=== PATIENT | male | born 1970 | race Caucasian/White ===

== ENCOUNTER 2017-03-04 06:00 | Observation (INO) | payer OTHER ==
[2017-02-24 13:50] VITALS: BMI 55.0
--- NOTE | 2017-02-24 14:23 | PAT Medication Instructions ---
Service Date Feb 24, 2017. Current Home Medication List Albuterol 0.5% Soln (Ventolin 0.5% Soln), 1 VIAL NEB BID Amoxicillin & Pot Clavulanate (Augmentin 875-125 mg), 1 TAB PO BID Atorvastatin (Lipitor), 10 MG PO QAM Dicyclomine Hcl (Dicyclomine Hcl), 1 TAB PO BID Diltiazem Hcl Ext Rel (Tiazac), 360 MG PO QAM Docusate Sodium (Docusate Sodium), 1 CAP PO BID Doxycycline Monohydrate (Monodox), 100 MG PO BID Duloxetine Hcl (Cymbalta), 60 MG PO QAM Fiber Laxative (Fiber Laxative), 1 TAB PO BID Furosemide (Lasix), 40 MG PO BID Gabapentin (Neurontin), 300 MG PO HS Gabapentin (Neurontin), 100 MG PO QAM Insulin Aspart (Novolog), 25-50 UNITS SC BID Insulin Glargine (Lantus), 65 UNITS SC BID Ipratropium-Albuterol (Combivent Respimat), 1 PUFFS INH QID PRN for SOB/Wheezing Loratadine (Allergy), 10 MG PO QAM Losartan Potassium (Losartan Potassium), 5 MG PO QAM Metformin Ext Rel (Glucophage Ext Rel), 2 TABS PO BID Metoprolol Tartrate (Lopressor) (Lopressor), 50 MG PO BID Montelukast Sodium (Singulair), 1 TAB PO HS Omeprazole (Prilosec), 20 MG PO QAM Polyethylene Glycol 3350 (Miralax), 17 GM PO DAILY PRN for CONSTIPATION Potassium Chloride (Micro-K Ext Rel), 20 MEQ PO QAM Rivaroxaban (Xarelto), 1 TAB PO HS Sildenafil Citrate (Viagra), 100 MG PO PRN Medication Instructions For Your Scheduled Surgery - Hold the following medications 48 hours prior to surgery: Metformin Ext Rel (Glucophage Ext Rel), 2 TABS PO BID - Hold the following medications the morning of surgery: Dicyclomine Hcl (Dicyclomine Hcl), 1 TAB PO BID Docusate Sodium (Docusate Sodium), 1 CAP PO BID Fiber Laxative (Fiber Laxative), 1 TAB PO BID Potassium Chloride (Micro-K Ext Rel), 20 MEQ PO QAM Furosemide (Lasix), 40 MG PO BID Polyethylene Glycol 3350 (Miralax), 17 GM PO DAILY PRN for CONSTIPATION Insulin Aspart (Novolog), 25-50 UNITS SC BID Loratadine (Allergy), 10 MG PO QAM Losartan Potassium (Losartan Potassium), 5 MG PO QAM Rivaroxaban (Xarelto), 1 TAB PO qAM (per surgeon, to Hold AM of surgery only) - Take the following medications the morning of surgery with a sip of water OTHERWISE NOTHING TO EAT OR DRINK AFTER MIDNIGHT: Albuterol 0.5% Soln (Ventolin 0.5% Soln), 1 VIAL NEB BID Ipratropium-Albuterol (Combivent Respimat), 1 PUFFS INH QID PRN for SOB/Wheezing Atorvastatin (Lipitor), 10 MG PO QAM Amoxicillin & Pot Clavulanate (Augmentin 875-125 mg), 1 TAB PO BID Diltiazem Hcl Ext Rel (Tiazac), 360 MG PO QAM Duloxetine Hcl (Cymbalta), 60 MG PO QAM Gabapentin (Neurontin), 100 MG PO QAM Doxycycline Monohydrate (Monodox), 100 MG PO BID Omeprazole (Prilosec), 20 MG PO QAM Metoprolol Tartrate (Lopressor) (Lopressor), 50 MG PO BID - For Insulin Dependent Diabetic patients: Test blood sugar A.M. of surgery. - If Blood Sugar is GREATER THAN 150, take HALF of your regular dose of: Insulin Glargine (Lantus) - If Blood Sugar is LESS THAN 150, do not take any: Insulin Glargine ( Lantus) - Take the following medications as scheduled the night before surgery: Albuterol 0.5% Soln (Ventolin 0.5% Soln), 1 VIAL NEB BID Ipratropium-Albuterol (Combivent Respimat), 1 PUFFS INH QID PRN for SOB/Wheezing Amoxicillin & Pot Clavulanate (Augmentin 875-125 mg), 1 TAB PO BID Dicyclomine Hcl (Dicyclomine Hcl), 1 TAB PO BID Docusate Sodium (Docusate Sodium), 1 CAP PO BID Fiber Laxative (Fiber Laxative), 1 TAB PO BID Furosemide (Lasix), 40 MG PO BID Doxycycline Monohydrate (Monodox), 100 MG PO BID Montelukast Sodium (Singulair), 1 TAB PO HS Gabapentin (Neurontin), 300 MG PO HS Metoprolol Tartrate (Lopressor) (Lopressor), 50 MG PO BID Polyethylene Glycol 3350 (Miralax), 17 GM PO DAILY PRN for CONSTIPATION Insulin Aspart (Novolog), 25-50 UNITS SC BID Insulin Glargine (Lantus), 65 UNITS SC BID If you have any questions please call us at [phone] or [phone] or [phone]
[~2017-03-04] VITALS: Ht 167.6 cm; Wt 152.0 kg
[~2017-03-04 06:00] MED LIST: ALBU0.5N2 NEB; AMOX875T PO; ATOR10TA82 PO; CZR50 PO; DICY20TA10 PO; DILT-119 PO; DOCU100C31 PO; DOXY100C76 PO; DULO60CA44 PO; FIBER PO; FRS/40 PO; GABA-112 PO; INSDGI SC; IPRA1AER2 INH; LORA10TA44 PO; METFTAB PO; METO50TA16 PO; MONT1TAB3 PO; NVLGI SC; POLY335019 PO; POTA10CA28 PO; PRLSR20 PO; RIVA1TAB4 PO; SILD100T PO
[2017-03-04] MEDS ORDERED: ALBUT/IPRATROP 3MG/0.5MG NEB 3 ML VIAL INH STA (07:06)
[2017-03-04 07:11] VITALS: BP 120/72; PULSE 64; TEMP 36.5; O2SAT 94; Ht 167.6 cm; Wt 152.0 kg
[2017-03-04 07:25] VITALS: PULSE 74; O2SAT 96
[2017-03-04] MEDS: LACTATED RINGER'S 1000ML 1,000 ML IV SCH ×2 (07:30→14:19)
[2017-03-04] MEDS ORDERED: PROPOFOL IV EMULSION 10 MG/ML 100 ML VIAL IV ONE (07:46)
[2017-03-04] MEDS ORDERED: MIDAZOLAM HCL 1 MG/ML 2ML VIAL ONE (07:58)
[2017-03-04] MEDS ORDERED: FENTANYL CITRATE INJ 50 MCG/1 ML 2 ML VIAL ONE (07:58)
--- NOTE | 2017-03-04 08:12 | History & Physical Bridge Note ---
H&P Re-Evaluation Bridge Note: I have examined the patient, reviewed the History & Physical and in the interval since the performance of the History & Physical I have noted the following changes of clinical significance: No changes noted
[2017-03-04] MEDS ORDERED: HEPARIN SOD (PORCINE) 1000 UNIT/ML 10 ML VIAL ONE (09:33)
[2017-03-04] MEDS ORDERED: LARYING-O-JET KIT (LTA) EXT ONE ×2 (09:42)
[2017-03-04] MEDS ORDERED: ONDANSETRON INJ 2 MG/ML 2 ML VIAL ONE (09:42)
[2017-03-04] MEDS ORDERED: LIDOCAINE HCL 2% 2 ML VIAL (20MG/ML) ONE (09:42)
[2017-03-04] MEDS ORDERED: SUCCINYLCHOLINE CHLORIDE 20 MG/ML 10 ML VIAL IV ONE (09:42)
[2017-03-04] MEDS ORDERED: PHENYLEPHRINE 100MCG/ML 5ML SYR ONE (09:42)
[2017-03-04] MEDS ORDERED: GLYCOPYRROLATE INJ 0.2 MG/ML VIAL ONE (09:42)
[2017-03-04] MEDS ORDERED: EpHEDrine SULFATE 50MG/5ML SYR ONE (09:42)
[2017-03-04] MEDS ORDERED: PROPOFOL IV EMULSION 10 MG/ML 20 ML VIAL IV ONE (09:42)
[2017-03-04] MEDS ORDERED: DEXAMETHASONE SOD INJ 4 MG/ML VIAL ONE (09:42)
[2017-03-04] MEDS ORDERED: NEOSTIGMINE METHYLSULFATE 5 MG/5 ML SYR ONE (09:42)
[2017-03-04] MEDS ORDERED: ACETAMINOPHEN 325 MG TAB PO PRN (11:45)
[2017-03-04] MEDS ORDERED: IPRATROPIUM BROMIDE/ALBUTEROL respimat INH INH PRN (11:45)
--- NOTE | 2017-03-04 12:01 | [facility] Post Operative Brief Note ---
Immediate Operative Summary Operative Date Mar 04, 2017. Pre-Operative Diagnosis TYPICAL PERSISTENT ATRIAL FLUTTER Post-Operative Diagnosis SAME, SINUS RHYTHM Procedure(s) Performed 3D MAPPING OF TYPICAL RIGHT ATRIAL FLUTTER, S/P CTI ABLATION, EPS Surgeon FERNANDEZ DACOSTA Ramp Agent Surgeon(s) NONE Estimated Blood Loss <10CC Findings NONE Fluids (cc crystalloids) 1550 Specimens NONE Drains NONE Anesthesia GENERAL ANESTHESIA Complication(s) None Disposition FRAME [facility]IP[facility] HOLDING
[2017-03-04] MEDS ORDERED: PHARMACY GLYCEMIC MGMT CONSULT PRN (12:09)
--- NOTE | 2017-03-04 12:31 | Discharge Instructions ---
Discharge Instructions Date of Service Mar 04, 2017. Admission Reason for Admission: A-Fib W/Ablation & Anesthesia Discharge Discharge Diagnosis / Problem: typical atrial flutter Discharge Goals Goal(s): Improve function Activity Recommendations Activity Limitations: as noted below (no lifting more than 10 pounds for 1 week ) May Resume Sexual Activity: after one week Shower/Bathe: tomorrow Driving or Machine Use: resume 1 day after discharge . Current Hospital Diet Patient's current hospital diet: AHA Diet (Heart Healthy), Low Sodium Diet (2gm Na) Discharge Diet Recommended Diet: AHA Diet (Heart Healthy), Low Sodium Diet (2gm Na) Procedures Procedures Performed: 3D MAPPING OF TYPICAL RIGHT ATRIAL FLUTTER, S/P CTI ABLATION, EPS Pending Studies Studies pending at discharge: no Medical Emergencies . Who to Call and When: Medical Emergencies: If at any time you feel your situation is an emergency, please call 911 immediately. . Non-Emergent Contact Non-Emergency issues call your: [facility] . . "Provider Documentation" section prepared by Kelsi Ramos. VTE Core Measure Inpt VTE Proph given/why not?: Other Anticoagulation (xaralto)
--- NOTE | 2017-03-04 12:35 | Discharge Summary ---
Discharge Summary Date of Service Mar 04, 2017. Discharge Summary Admission Date: 03/04/2017 Discharge Date: Mar 05, 2017 Discharge Disposition: Home Principal Diagnosis: persistent typical atrial flutter Secondary Diagnoses/Problems: HTN HLD COPD VERA on CPAP prior tobacco abuse morbid obesity Procedures: 3d mapping of typical counter clockwise right atrial flutter, ablation of cavotricuspid isthmus, EPS Medication Reconciliation Continued Medications: Albuterol 0.5% Soln (Ventolin 0.5% Soln) Nebu 1 VIAL NEB BID Amoxicillin & Pot Clavulanate (Augmentin 875-125 mg) 1 Tab Tab 1 TAB PO BID, #14 TAB ALTERNATES WVERY MNTH WITH DOXYCYCLINE Atorvastatin (Lipitor) 10 Mg Tab 10 MG PO QAM Dicyclomine Hcl (Dicyclomine Hcl) 20 Mg Tab 1 TAB PO BID Docusate Sodium (Docusate Sodium) 100 Mg Cap 1 CAP PO BID Doxycycline Monohydrate (Monodox) 100 Mg Cap 100 MG PO BID, CAP ALTERNATES MONTHLY WITH AUGMENTIN WHICH IS BEING TAKEN PRESENTLY Duloxetine Hcl (Cymbalta) 60 Mg Cap 60 MG PO QAM, CAP Fiber Laxative (Fiber Laxative) Ea 1 TAB PO BID Furosemide (Lasix) 40 Mg Tab 40 MG PO BID Gabapentin (Neurontin) 100 Mg Cap 300 MG PO HS, CAP Gabapentin (Neurontin) 100 Mg Cap 100 MG PO QAM Insulin Aspart (Novolog) 100 Unit/ Inj 25-50 UNITS SC BID +SLIDING SCALE Insulin Glargine (Lantus) 100 Unit/Ml Inj 65 UNITS SC BID Ipratropium-Albuterol (Combivent Respimat) 1 Aer Aer 1 PUFFS INH QID PRN for SOB/Wheezing, INH Loratadine (Allergy) 10 Mg Tab 10 MG PO QAM Losartan Potassium (Losartan Potassium) 50 Mg Tab 5 MG PO QAM Metformin Ext Rel (Glucophage Ext Rel) 500 Mg Tab 2 TABS PO BID, TAB Montelukast Sodium (Singulair) 10 Mg Tab 1 TAB PO HS Omeprazole (Prilosec) 20 Mg Capcr 20 MG PO QAM Polyethylene Glycol 3350 (Miralax) 1 Pow Pow 17 GM PO DAILY PRN for CONSTIPATION, #255 GM Potassium Chloride (Micro-K Ext Rel) 10 Meq Capcr 20 MEQ PO QAM Rivaroxaban (Xarelto) 20 Mg Tab 1 TAB PO HS Sildenafil Citrate (Viagra) 100 Mg Tab 100 MG PO PRN, TAB Discontinued Medications: Diltiazem Hcl Ext Rel (Tiazac) 360 Mg Capcr 360 MG PO QAM, CAP Metoprolol Tartrate (Lopressor) (Lopressor) 50 Mg Tab 50 MG PO BID, TAB Admission Information Physical Exam (per Admitting): aaox3, nad supple, no jvd irregular S1/S2, no murmur CTA b/l no w/r/r soft obese No LE edema b/l no focal deficits Hospital Course pt admitted for elective atrial flutter ablation; underwent the procedure with general anesthesia without any complications. Monitored overnight and discharged home following day. Total time spent on discharge = This includes examination of the patient, discharge planning, medication reconciliation, and communication with other providers. Discharge Instructions ACTIVITY RECOMMENDATIONS: It is common to feel weak and fatigue for a few days. * Do not drive or operate any motorized equipment for the next 1 day. * Limit stair usage (2 or 3 trips a day only) for the next three days. * Do not lift anything heavier than 10 pounds for the next 7 days. * Do not engage in vigorous exercise or any sports for the next five days. * You may shower the day after your procedure, but do not immerse the area for three days. Cleanse the site gently with soap and water. SPECIAL CARE INSTRUCTIONS: * You may replace the pressure dressing or band-aid the morning after the procedure. * After your procedure, it is normal to have a small bruise or small lump at the site. Examine your site daily for any change in the bruise or lump, redness, swelling, drainage or numbness. Notify your doctor if any change. BLEEDING: * If there is a small amount of bleeding at the site, lie down and apply firm pressure with a clean cloth for ten minutes. When the bleeding stops, lie quietly keeping the procedure limb straight for six hours. Notify your doctor as soon as possible. * If the bleeding does not stop after ten minutes or if there is a large amount of bleeding or spurting, call 911 immediately. Continue to lie down and hold firm pressure until help arrives. SKIN IRRITATION: * You may experience some redness and/or swelling in the area where radiation was administered. If any skin irritation occurs, please contact your family physician. FOLLOW UP VISIT: Keep any scheduled doctor appointments.
[2017-03-04] MEDS ORDERED: IV FLUIDS COMPLETED PRN (12:45)
--- NOTE | 2017-03-04 13:12 | Anesthesiology Progress Note ---
Anesthesia Post Op Note Date & Time Mar 04, 2017 at 13:11 Vital Signs Pain Intensity: 0 Vital Signs Past 12 Hours Date Time Temp Pulse Resp B/P Pulse Ox O2 Delivery O2 Flow Rate FiO2 03/04/17 12:45 87 16 146/73 98 Nasal Cannula 3 03/04/17 12:30 86 16 155/89 98 Nasal Cannula 3 03/04/17 12:15 36.5 84 16 146/83 98 Mask 10 03/04/17 11:56 36.5 82 16 140/83 99 Mask 10 03/04/17 11:46 36.4 80 16 122/88 99 Mask 10 03/04/17 11:36 36.6 82 16 133/90 99 Mask 10 03/04/17 07:11 36.5 64 20 120/72 94 Room Air Notes Mental Status: alert / awake / arousable, participated in evaluation Pt Amnestic to Procedure: Yes Nausea / Vomiting: adequately controlled Pain: adequately controlled Airway Patency, RR, SpO2: stable & adequate BP & HR: stable & adequate Hydration State: stable & adequate Anesthetic Complications: no major complications apparent
[2017-03-04 14:25] VITALS: BP 140/83; PULSE 95; TEMP 36.6; O2SAT 90
[2017-03-04] MEDS ORDERED: GLUCAGON FOR INJ 1 MG VIAL SQ PRN (15:15)
[2017-03-04] MEDS ORDERED: DEXTROSE 50% 50 ML SYR IV PRN (15:15)
[2017-03-04] MEDS ORDERED: GLUCOSE 40% GEL 15 GM TUBE PO PRN (15:15)
[2017-03-04] MEDS ORDERED: GLUCOSE 10 TABS/TUBE PO PRN (15:15)
--- NOTE | 2017-03-04 15:20 | Pharmacy Progress Note ---
Glycemic Control Intl Consult Date of Service Mar 04, 2017. Scope Glycemic Pharmacist consulted by Dr Ramos on 03/04/2017 for glycemic control and to write orders per [facility] inpatient glycemic control protocol Objective Weight (Kilograms): 152 Accuchecks BSG (last 24hrs): Test 03/04/17 07:00 Bedside Glucose 220 mg/dl (70-99) Recent Pertinent Medications Outpatient Anti-diabetic Regimen: * Lantus 65 units BID + Novolog 30 units with breakfast, 22 units with lunch, 40 units with dinner plus a correction factor of 1:10 over 150 (confirmed with outpatient records at [facility]) * A1c = 8.4 % 12/05/2016 Risk Factors for Insulin Resistance: * Steroids: dexamethasone 4 mg IV x 1 during ablation * Recent Surgery: EPS with ablation POD 0 * Diet: AHA and type 2 diabetic diet Assessment & Plan ASSESSMENT: * ADA & AACE recommend a goal blood sugar range 140-180 mg/dl for the majority of critically ill & non-critically ill patients. However, more stringent targets may be selected in individual cases. A lower goal range is utilized for this patient due to his age and outpatient A1C control. * Mr Pankaj Blackwell is a 46 y/o M admitted for an ablation. He appears to be a very insulin resistant individual who requires over 200 units of insulin per day. He did take half of his Lantus dose this morning due to being NPO. * For his Lantus, I will start a slightly higher than home dose (Lantus 75 units x 1) with dinner in order to overcome that he took a half-dose this morning. It will also be started earlier than HS. The patient's home dose of Lantus will be restarted as the patient received steroids during surgery. It does appear that this home dose is split 50/50 so Lantus 65 units BID may represent his actual basal requirements. * For his Novolog, aggressive dosing was utilized due to his insulin resistance and the dexamethasone 4 mg given during surgery. Weight based dosing with a stress of 2 recommends a CF of 1:15 and a CR of 1:5. But taking into account the best estimate of current basal needs (~130 units/day) and total outpatient insulin dose (~200 units/day), a tight CF (1:5 and 1:5 respectively) and and CR (1:2 and 1:2 respectively) can be utilized. Also the patient's metformin will be held so his insulin sensitivity may be worsened. Overnight Accuchecks will be added to ensure adequate glucose control is maintained. PLAN FOR INPATIENT GLYCEMIC CONTROL: * Holding outpatient oral diabetes medications * Basal insulin with LANTUS 75 units x 1 then LANTUS 65 units SQ BID * Correctional Insulin with NOVOLOG per scale ACHS plus checks at midnight and 0400 * Goal Range: Low 100 mg/dL - High 140 mg/dL * Correction Factor: 8 mg/dL/unit * Nutritional / Prandial insulin per carb ratio of 1 unit per 2 grams CHO consumed PLAN FOR DISCHARGE * As the patient has adequate glucose control at home, recommend continuing home regimen at discharge. Thank you.
[2017-03-04 15:47] VITALS: BP 150/87; PULSE 99; TEMP 36.8; O2SAT 94
[2017-03-04] MEDS ORDERED: INSULIN ASPART 100 UNITS/ML 3 ML PEN SC SCH (16:00)
[2017-03-04] MEDS ORDERED: INSULIN GLARGINE SC SCH (16:45)
[2017-03-04] MEDS ORDERED: RIVAROXABAN 10 MG TAB PO SCH ×2 (16:45→21:00)
[2017-03-04 19:31] VITALS: BP 148/72; PULSE 95; TEMP 36.9; O2SAT 93
[2017-03-04] MEDS: DICYCLOMINE HCL 20 MG TAB PO SCH (20:34)
[2017-03-04] MEDS: DOCUSATE SODIUM 100 MG CAP PO SCH (20:35)
[2017-03-04] MEDS: FUROSEMIDE 40 MG TAB PO SCH (20:35)
[2017-03-04] MEDS ORDERED: MONTELUKAST SOD 10 MG TAB PO SCH (21:00)
[2017-03-04] MEDS ORDERED: METFORMIN HCL 500 MG TABCR PO SCH (21:00)
[2017-03-04] MEDS ORDERED: GABAPENTIN 300 MG CAP PO SCH (21:00)
[2017-03-04] MEDS: INSULIN ASPART 100 UNITS/ML VIAL SC SCH (21:03)
[2017-03-05] VITALS: BP 161/78; PULSE 93; TEMP 36.8; O2SAT 96
[2017-03-05] MEDS ORDERED: INSULIN ASPART 100 UNITS/ML 3 ML PEN SC SCH
[2017-03-05] MEDS: INSULIN ASPART 100 UNITS/ML VIAL SC SCH ×3 (00:39→07:57)
--- NOTE | 2017-03-05 01:27 | OPERATIVE REPORT ---
DATE OF OPERATION: 03/04/2017 PREOPERATIVE DIAGNOSIS: Persistent atrial flutter. POSTOPERATIVE DIAGNOSES: Typical counterclockwise right atrial flutter, sinus rhythm, bidirectional block over the cavotricuspid isthmus. SURGEON: Kelsi Ramos, PROCEDURES: 3D mapping of typical counterclockwise right atrial flutter, radiofrequency ablation of a cavotricuspid isthmus line, electrophysiology study. ANESTHESIA: General anesthesia given via anesthesiology. Please refer to their notes for complete details. ESTIMATED BLOOD LOSS: Less than 10 mL. IV FLUIDS: 1550 mL. CONTRAST: 23 mL. URINE OUTPUT: Not applicable. SPECIMENS: None. FINDINGS: See below. COMPLICATIONS: None. CONDITION: Stable. DRAINS: None. INDICATIONS: This is a 46-year-old gentleman who has a past medical history for persistent atrial flutter where he has been on beta blockers and calcium channel blockers as well as Xarelto, chronic diastolic congestive heart failure [place] Heart Association class 2, hyperlipidemia, COPD, obstructive sleep apnea, uses his CPAP, prior tobacco use and morbid obesity. Due to his persistent atrial flutter, he was recommended an atrial flutter ablation. CONSENT: Consent was obtained prior to the patient going into the electrophysiology lab. The patient was informed of the risks, benefits and alternatives to the procedure. Risks include but not limited to sudden cardiac , cardiac arrhythmias, cerebrovascular accident, myocardial infarction, injury to the blood vessels, chamber of the heart or the hopi electrical system where we would need a permanent pacemaker, bleeding, infection, or blood clot. The patient understood these risks and agreed to have the procedure as planned. Informed consent was obtained. DESCRIPTION OF PROCEDURE: The patient was brought into the electrophysiology lab in a fasting state. He was connected to continuous cardiac monitoring. A timeout was performed to ensure patient's identity and procedure correctly. The patient was prepped and draped over the bilateral groins in normal surgical standard fashion. [place] precautions were maintained throughout the procedure. Monitored general anesthesia was given throughout the procedure for the patient's comfort level, administered via anesthesiology. Using the modified Seldinger technique, venous access was obtained in the following manner. The left femoral vein, I did not have any trouble with the access however and the wire went up smoothly when I placed a 7-Thai and 8-Thai sheath in and when I aspirated, I got a good blood drawn back but when I went to advance the CS catheter, it was not going, I felt some resistance. So I then opted to give IV contrast through both sheaths. It looked like maybe I was in possibly a branch or there was some stenosis, so I opted to abort the access on the left femoral vein. We pulled the sheath and used manual compression to establish hemostasis. Using the modified Seldinger technique, the right femoral vein was accessed 3 times in the following way. A 6-Thai sheath was placed and then eventually swapped out for an SRO, followed by the ablation 4 mm Biosense SmartTouch ThermoCool DF curve catheter. An 8-Thai sheath, followed by a Halo 20 pole catheter that was positioned around the right atrium. A 7-Thai sheath, followed by a [employer] coronary sinus Decapolar catheter was positioned out in the coronary sinus. The atrial flutter cycle length was 244 milliseconds and it was counterclockwise through the tricuspid isthmus. We did 3D activation map of atrial flutter. Then I positioned the ablation catheter at the cavotricuspid isthmus, starting from the tricuspid valve and gave a series of radiofrequency amin, 35 kumar each for a minute, down along the cavotricuspid isthmus line to the IVC. We did break in back to sinus rhythm during one of the ablations, very close to the IVC. During this, there was a 4.3-second conversion pause and then he went back into sinus rhythm. I continued with ablation particularly in the area where there was a pocket and pouch after we had broken to sinus rhythm until we had bidirectional block. During our 30-minute waiting period, I did perform the electrophysiology study. The ablation catheter was swapped out and a Xcalar quad catheter was placed initially over the His bundle to get His recordings and then eventually placed into the right ventricle apex to get RV ERP. ELECTROPHYSIOLOGY STUDY FINDINGS: 1. ND interval 194, QRS 78 milliseconds, QT 386 milliseconds. 2. Sinus cycle length 864 milliseconds, AH 100 milliseconds, HV 56 milliseconds. 3. AV Wenckebach 470 milliseconds, AV node ERP 700/310 and 500/40. 4. Atrial ERP 700/210, 500/220. 5. There was VA block with RV pacing at 600. 6. The right ventricular ERP is 600/240 and 400/200. I gave up to double atrial extrastimuli from the high right atrium. I was not able to induce any atrial flutter. We then continued after a 30-minute waiting period. Checked for bidirectional block along the cavotricuspid isthmus line again. With pacing proximal, measuring to lateral to the line, I had 166-millisecond time interval. When pacing lateral and measuring medial to the line, I had a 174-millisecond time interval. All the catheters were removed from the body and the sheaths were pulled and manual compression was used to establish hemostasis. The patient was monitored post general anesthesia and then eventually brought up to his room. IMPRESSION: 1. Successful bidirectional block of the cavotricuspid isthmus due to persistent typical counterclockwise right atrial flutter. 2. Normal AV ray conduction. PLAN: Monitor patient overnight, 12-lead ECG. He can stop his metoprolol and calcium channel marvin. He should continue his Xarelto and I will see him in the office in 1 month. He is not to do any heavy lifting or squatting for 1 week. I attest to the content of the Intraoperative Record and any orders documented therein. Any exceptions are noted below. SONIA
[2017-03-05 04:00] VITALS: BP 176/82; PULSE 80; TEMP 36.8; O2SAT 97
[2017-03-05] MEDS: FUROSEMIDE 40 MG TAB PO SCH (08:01)
[2017-03-05] MEDS: DICYCLOMINE HCL 20 MG TAB PO SCH (08:01)
[2017-03-05] MEDS: DOCUSATE SODIUM 100 MG CAP PO SCH (08:01)
[2017-03-05 08:02] VITALS: BP 139/78; PULSE 82; TEMP 36.8; O2SAT 95
--- NOTE | 2017-03-05 08:19 | Cardiology Follow-Up ---
Subjective Subjective Date of Service: Mar 05, 2017. Pt evaluation today including: conversation w/ patient, physical exam, chart review, lab review Pain: none Voiding: no voiding problems Review of Systems Constitutional: No fatigue, No weakness Respiratory: No dyspnea on exertion, No shortness of breath Cardiac: No chest pain, No edema, No palpitations Abdomen: No nausea, No vomiting Endo: No fatigue Objective Vital Signs Last Vital Signs Documentation Date Time Temp Pulse Resp B/P Pulse Ox O2 Delivery O2 Flow Rate FiO2 03/05/17 08:02 36.8 82 26 139/78 95 03/05/17 04:00 Nasal Cannula 4.0 BiPAP CPAP Physical Exam: General Appearance: WD/WN, no apparent distress Eyes: bilateral eyes EOMI, bilateral eyes PERRL Neck: supple, no JVD Respiratory/Chest: lungs clear, normal breath sounds Cardiovascular: regular rate, rhythm, no edema, no JVD, no murmur Abdomen: soft Neurologic/Psychiatric: senior instructional designer II-XII nml as tested, alert, oriented x 3 Skin: warm/dry (b/l groins soft no hematoma) Assessment and Plan Impression: 1. Persistent typical counter clockwise right atrial flutter s/p CTI ablation 10/2017 2. Chronic diastolic HF, NYHA Class III 3. VERA on CPAP 4. Morbid obesity Plan: -Ok for discharge today -Stop Metoprolol and CCB -Continue Xarelto -No heavy lifting or squatting for 1 week -F/u in my office in [place] in 1 month Discharge planning: home Medications: Medications Administered Medications (Trade) Dose Ordered Sig/Radu Route Start Time Stop Time Status Last Admin Dose Admin Lactated Ringer's (Lr 1000ml) 1,000 ml @ 15 mls/hr Q24H IV 03/04/17 06:00 03/05/17 05:59 DC 03/04/17 07:30 15 MLS/HR Albuterol/ Ipratropium (Duoneb) 3 ml ONE STAT INH 03/04/17 07:06 03/04/17 07:21 DC 03/04/17 07:25 3 ML Atorvastatin Calcium (Lipitor Tab) 10 mg QAM PO 03/05/17 09:00 04/04/17 08:59 03/05/17 08:01 10 MG Dicyclomine HCl (Bentyl Tab) 20 mg BID PO 03/04/17 21:00 04/03/17 20:59 03/05/17 08:01 20 MG Docusate Sodium (coLACE CAP) 100 mg BID PO 03/04/17 21:00 04/03/17 20:59 03/05/17 08:01 100 MG Duloxetine HCl (Cymbalta Cap) 60 mg QAM PO 03/05/17 09:00 04/04/17 08:59 03/05/17 08:01 60 MG Furosemide (Lasix Tab) 40 mg BID PO 03/04/17 21:00 04/03/17 20:59 03/05/17 08:01 40 MG Gabapentin (Neurontin Cap) 100 mg QAM PO 03/05/17 09:00 04/04/17 08:59 03/05/17 08:00 100 MG Gabapentin (Neurontin Cap) 300 mg HS PO 03/04/17 21:00 04/03/17 20:59 03/04/17 20:34 300 MG Montelukast Sodium (Singulair Tab) 10 mg HS PO 03/04/17 21:00 04/03/17 20:59 03/04/17 20:34 10 MG Potassium Chloride (Klor-Con Tab) 20 meq QAM PO 03/05/17 09:00 04/04/17 08:59 03/05/17 08:00 20 MEQ Insulin Glargine (Lantus Vial) 65 unit BID SC 03/05/17 09:00 04/04/17 08:59 03/05/17 07:57 65 UNIT Rivaroxaban (Xarelto Tab) 20 mg QDD PO 03/04/17 16:45 04/03/17 16:44 03/04/17 17:09 20 MG Insulin Glargine (Lantus Vial) 75 unit QDD SC 03/04/17 16:45 03/04/17 16:46 DC 03/04/17 17:21 75 UNIT Insulin Aspart (novoLOG ASPART) SLIDING SCALE ACHS SC 03/04/17 16:00 03/04/17 20:14 DC 03/04/17 17:21 41 UNITS Insulin Aspart (novoLOG ASPART) SLIDING SCALE ACHS SC 03/04/17 21:00 04/03/17 20:59 03/05/17 07:57 27 UNITS Insulin Aspart (novoLOG ASPART) SLIDING SCALE TODAY@0000,0400 SC 03/05/17 00:00 03/05/17 04:01 DC 03/05/17 04:23 5 UNITS Lab Results: Telemetry: SR ECG: SR Last 24 Hours Test 03/04/17 16:21 03/04/17 20:06 03/05/17 00:34 03/05/17 03:48 Bedside Glucose 321 mg/dl 304 mg/dl 275 mg/dl 173 mg/dl Test 03/05/17 07:51 Bedside Glucose 183 mg/dl
[2017-03-05] MEDS ORDERED: DULOXETINE HCL 60 MG CAP PO SCH (09:00)
[2017-03-05] MEDS ORDERED: LOSARTAN POTASSIUM 25 MG TAB PO SCH (09:00)
[2017-03-05] MEDS ORDERED: INSULIN GLARGINE SC SCH (09:00)
[2017-03-05] MEDS ORDERED: POTASSIUM CHLORIDE 20 MEQ TABCR PO SCH (09:00)
[2017-03-05] MEDS ORDERED: ATORVASTATIN 10 MG TAB PO SCH (09:00)
[2017-03-05] MEDS ORDERED: GABAPENTIN 100 MG CAP PO SCH (09:00)
[2017-03-05 09:13] VITALS: BP 139/78; PULSE 82; TEMP 36.8; O2SAT 95
--- NOTE | 2017-03-05 10:45 | Anesthesiology Progress Note ---
Anesthesia Post Op Note Date & Time Mar 05, 2017 at 10:44 Vital Signs Pain Intensity: 0.0 Vital Signs Past 12 Hours Date Time Temp Pulse Resp B/P Pulse Ox O2 Delivery O2 Flow Rate FiO2 03/05/17 09:13 36.8 82 26 95 Room Air 03/05/17 08:02 36.8 82 26 139/78 95 03/05/17 04:00 Nasal Cannula 4.0 BiPAP CPAP 03/05/17 04:00 36.8 80 20 176/82 97 Room Air 03/05/17 00:01 Nasal Cannula 4.0 BiPAP CPAP 03/05/17 00:00 36.8 93 20 161/78 96 CPAP Notes Mental Status: alert / awake / arousable, participated in evaluation Pt Amnestic to Procedure: Yes Nausea / Vomiting: adequately controlled Pain: adequately controlled Airway Patency, RR, SpO2: stable & adequate BP & HR: stable & adequate Hydration State: stable & adequate Anesthetic Complications: no major complications apparent
== END 2017-03-05 11:24 | disposition home or self-care (01) ==
LOC: C.ACU 06:00 → C.2T 11:52
PROVIDERS: ADMIT Internal Medicine; ATTEND Internal Medicine
DX: I48.4 Atypical atrial flutter (principal); I48.91 Unspecified atrial fibrillation; I50.32 Chronic diastolic (congestive) heart failure; I10 Essential (primary) hypertension; E78.2 Mixed hyperlipidemia; J44.9 Chronic obstructive pulmonary disease, unspecified; G47.33 Obstructive sleep apnea (adult) (pediatric); E66.01 Morbid (severe) obesity due to excess calories; N52.9 Male erectile dysfunction, unspecified; E11.9 Type 2 diabetes mellitus without complications; Z79.01 Long term (current) use of anticoagulants; Z87.891 Personal history of nicotine dependence; Z79.899 Other long term (current) drug therapy; Z83.3 Family history of diabetes mellitus; Z80.41 Family history of malignant neoplasm of ovary; Z82.49 Family history of ischemic heart disease and other diseases of the circulatory system

== ENCOUNTER 2017-12-23 12:23 | Day surgery (SDC) | payer OTHER ==
[2017-11-20 11:42] VITALS: BMI 55.0
--- NOTE | 2017-11-20 12:36 | PAT Medication Instructions ---
Service Date Nov 20, 2017. Current Home Medication List Atorvastatin (Lipitor), 10 MG PO QAM Dicyclomine Hcl (Dicyclomine Hcl), 1 TAB PO BID Docusate Sodium (Docusate Sodium), 1 CAP PO BID Duloxetine Hcl (Cymbalta), 60 MG PO QAM Fiber Laxative (Fiber Laxative), 1 TAB PO BID Gabapentin (Neurontin), 300 MG PO HS Insulin Glargine (Lantus), 70-75 UNITS SC BID Ipratropium-Albuterol (Combivent Respimat), 1 PUFFS INH QID PRN for SOB/Wheezing Lisinopril (Zestril), 10 MG PO BID Loratadine (Claritin), 10 MG PO QAM Metformin Ext Rel (Glucophage Ext Rel), 2 TABS PO BID Metolazone (Zaroxolyn), 2.5 MG PO UD PRN for water retention Montelukast Sodium (Singulair), 1 TAB PO HS Omeprazole (Prilosec), 20 MG PO QAM Polyethylene Glycol 3350 (Miralax), 17 GM PO DAILY PRN for CONSTIPATION Potassium Chloride (Micro-K Ext Rel), 20 MEQ PO BID Rivaroxaban (Xarelto), 1 TAB PO QAM Sildenafil Citrate (Viagra), 100 MG PO PRN Torsemide (Demadex), 100 MG PO QAM Torsemide (Demadex), 50 MG PO afternoon [albuterol nebulizer], Unknown Dose [insulin aspart], UD Medication Instructions For Your Scheduled Surgery - Hold the following medications 2 weeks prior to surgery: Rivaroxaban (Xarelto), 1 TAB PO QAM - Hold the following medications 48 hours prior to surgery: Metformin Ext Rel (Glucophage Ext Rel), 2 TABS PO BID - Hold the following medications 24 hours prior to surgery: Lisinopril (Zestril), 10 MG PO BID - Hold the following medications the morning of surgery: [insulin aspart], UD Fiber Laxative (Fiber Laxative), 1 TAB PO BID Dicyclomine Hcl (Dicyclomine Hcl), 1 TAB PO BID Docusate Sodium (Docusate Sodium), 1 CAP PO BID Torsemide (Demadex), 100 MG PO QAM Sildenafil Citrate (Viagra), 100 MG PO PRN Potassium Chloride (Micro-K Ext Rel), 20 MEQ PO BID Polyethylene Glycol 3350 (Miralax), 17 GM PO DAILY PRN for CONSTIPATION Loratadine (Claritin), 10 MG PO QAM Metolazone (Zaroxolyn), 2.5 MG PO UD PRN for water retention - Take the following medications the morning of surgery with a sip of water OTHERWISE NOTHING TO EAT OR DRINK AFTER MIDNIGHT: Atorvastatin (Lipitor), 10 MG PO QAM Duloxetine Hcl (Cymbalta), 60 MG PO QAM [albuterol nebulizer], Unknown Dose Omeprazole (Prilosec), 20 MG PO QAM Ipratropium-Albuterol (Combivent Respimat), 1 PUFFS INH QID PRN for SOB/Wheezing - For Insulin Dependent Diabetic patients: Test blood sugar A.M. of surgery. - If Blood Sugar is GREATER THAN 150, take HALF of your regular dose of: Insulin Glargine (Lantus) - If Blood Sugar is LESS THAN 150, do not take any: Insulin Glargine ( Lantus) - Take the following medications as scheduled the night before surgery: [insulin aspart], UD Insulin Glargine (Lantus), 70-75 UNITS SC BID Fiber Laxative (Fiber Laxative), 1 TAB PO BID Dicyclomine Hcl (Dicyclomine Hcl), 1 TAB PO BID Docusate Sodium (Docusate Sodium), 1 CAP PO BID [albuterol nebulizer], Unknown Dose Torsemide (Demadex), 50 MG PO afternoon Potassium Chloride (Micro-K Ext Rel), 20 MEQ PO BID Gabapentin (Neurontin), 300 MG PO HS Montelukast Sodium (Singulair), 1 TAB PO HS Metolazone (Zaroxolyn), 2.5 MG PO UD PRN for water retention Ipratropium-Albuterol (Combivent Respimat), 1 PUFFS INH QID PRN for SOB/Wheezing If you have any questions please call us at [phone] or [phone] or [phone]
[2017-11-20 12:48] LABS: BASO % 0.4 %; BASO ABS # 0.03 K/uL (0-0.2); EOS % 2.6 %; HEMATOCRIT 40.3 % (42-52); HEMOGLOBIN 13.3 g/dL (14.0-18.0); IG# 0.05 K/uL (0.00-0.02); LYMPH % 24.4 %; LYMPH ABS # 1.84 K/uL (1.2-3.4); MEAN CELL VOLUME 90.6 fL (80-100); MEAN CORPUSCULAR HEMOGLOBIN 29.9 pg (25-34); MEAN PLATELET VOLUME 9.9 fL (7.4-10.4); MONO % 7.2 %; MONO ABS # 0.54 K/uL (0.11-0.59); NEUT % 64.7 %; NEUT ABS # 4.89 K/uL (1.4-6.5); PLATELET COUNT 316 K/uL (130-400); RED CELL DISTRIBUTION WIDTH CV 14.5 % (11.5-14.5); RED CELL DISTRIBUTION WIDTH SD 47.3 fL (36.4-46.3); WHITE BLOOD COUNT 7.55 K/uL (4.8-10.8)
[2017-11-20 12:54] LABS: INR 1.1 (0.9-1.1); PTT PATIENT 34.1 SECONDS (21.0-31.0)
[2017-11-20 13:06] LABS: CALCIUM 9.6 mg/dl (8.5-10.1); CREATININE 1.07 mg/dl (0.60-1.40); POTASSIUM 4.1 mmol/L (3.5-5.1)
--- NOTE | 2017-12-22 15:46 | HISTORY & PHYSICAL EXAMINATION ---
DATE OF ADMISSION: 12/23/2017 HISTORY OF PRESENT ILLNESS: The patient presents as a 47-year-old white male, being seen and evaluated for left knee arthroscopy with arthroscopic partial medial meniscectomy, chondroplasty at [facility], presents here after failing attempts at conservative management including physical therapy, anti-inflammatories, activity modification, and rest. PAST MEDICAL HISTORY: Significant for history of CHF, hypertension, hypercholesterolemia as well as atrial fibrillation for which he underwent ablation. Past medical condition also is consistent with sleep apnea, diabetes for which he is currently taking insulin. FAMILY HISTORY: Otherwise unremarkable and noncontributory. SOCIAL HISTORY: The patient denies history of smoking, alcohol use, or recreational drug use. PAST SURGICAL HISTORY: Significant for cholecystectomy, carpal tunnel surgery, and ablation for atrial fibrillation. ALLERGIES: INCLUDE BEE STINGS AND CARDIZEM. PHYSICAL EXAMINATION: GENERAL: Reveals a very pleasant 47-year-old white male. HEENT: Unremarkable. Atraumatic, normocephalic. HEART: Regular at 72 beats per minute. No murmurs are noted. LUNGS: Clear without rales, rhonchi, or wheeze noted. ABDOMEN: Soft, nontender, nondistended. Bowel sounds are present in all 4 quadrants. RECTAL: No rectal examination was performed. MUSCULOSKELETAL: Examination is consistent with that of ongoing pain consistent with that of left knee. PROCEDURE: The patient presents for left knee arthroscopy with arthroscopic partial meniscectomy versus a chondroplasty pending findings at the time of surgery, postoperative pain management, and DVT prophylaxis.
[~2017-12-23] VITALS: Ht 167.6 cm; Wt 156.0 kg
[~2017-12-23 12:23] MED LIST changes: -ALBU0.5N2 NEB; -AMOX875T PO; +CEFAZOLIN 3000MG IV PUSH 22.5 ML IV SCH; +CLR10 PO; -CZR50 PO; -DILT-119 PO; -DOXY100C76 PO; -FRS/40 PO; +LACTATED RINGER'S 1000ML 1,000 ML IV SCH; +LISI-461 PO; -LORA10TA44 PO; +METO2.5T PO; -METO50TA16 PO; -NVLGI SC; +TORS20TA2 PO; +albuterol nebulizer; +insulin aspart
[2017-12-23 12:45] VITALS: BP 166/98; PULSE 91; TEMP 36.9; O2SAT 97; Ht 167.6 cm; Wt 156.0 kg
[2017-12-23] MEDS ORDERED: novolog SQ (12:56)
[2017-12-23] MEDS ORDERED: FENTANYL CITRATE INJ 50 MCG/1 ML 2 ML VIAL ONE ×2 (13:01→16:34)
[2017-12-23] MEDS ORDERED: FENTANYL CITRATE INJ 50 MCG/1 ML 2 ML VIAL IV PRN (13:15)
[2017-12-23] MEDS ORDERED: ATROPINE SULFATE 0.1 MG/ML 5ML SYR IV PRN (13:15)
[2017-12-23] MEDS ORDERED: KETOROLAC TROMETHAMINE 30 MG/ML VIAL IV. PRN (13:15)
[2017-12-23] MEDS ORDERED: ONDANSETRON INJ 2 MG/ML 2 ML VIAL IV PRN (13:15)
[2017-12-23] MEDS ORDERED: BUPIVACAINE/EPINEPHRINE 0.5% MPF 1:200,000 30 ML VIAL ONE (14:11)
[2017-12-23] MEDS ORDERED: LARYING-O-JET KIT (LTA) ONE (14:29)
[2017-12-23] MEDS ORDERED: ROCURONIUM BROMIDE 10 MG/ML 5 ML VIAL IV ONE (14:29)
[2017-12-23] MEDS ORDERED: PROPOFOL IV EMULSION 10 MG/ML 20 ML VIAL IV ONE ×2 (14:29→15:00)
[2017-12-23] MEDS ORDERED: ONDANSETRON INJ 2 MG/ML 2 ML VIAL ONE ×2 (14:29→16:19)
[2017-12-23] MEDS ORDERED: LIDOCAINE HCL 2% 2 ML VIAL (20MG/ML) ONE (14:29)
[2017-12-23] MEDS ORDERED: SUCCINYLCHOLINE CHLORIDE 20 MG/ML 10 ML VIAL IV ONE (14:29)
[2017-12-23] MEDS ORDERED: HYDR-5688 PO (14:55)
[2017-12-23] MEDS ORDERED: KETAMINE HCL INJ 50 MG/ML 10 ML VIAL ONE (14:56)
[2017-12-23] MEDS ORDERED: SODIUM CHLORIDE 0.9% INJ 10 ML VIAL ONE (14:58)
[2017-12-23] MEDS ORDERED: ACETAMINOPHEN 325 MG TAB PO PRN (15:00)
[2017-12-23] MEDS ORDERED: OXYCODONE HCL IR 5 MG TAB (IMMEDIATE RELEASE) PO PRN (15:00)
[2017-12-23] MEDS ORDERED: KETOROLAC TROMETHAMINE 15 MG/ML VIAL IV. PRN (15:00)
[2017-12-23] MEDS ORDERED: MoRPHine SULFATE 2 MG/ML CARP IV PRN (15:00)
[2017-12-23] MEDS ORDERED: MIDAZOLAM HCL 1 MG/ML 2ML VIAL ONE ×2 (15:05→15:57)
--- NOTE | 2017-12-23 15:24 | [facility] Post Operative Brief Note ---
Immediate Operative Summary Operative Date Dec 23, 2017. Pre-Operative Diagnosis Medial Meniscus Tear Left Knee Post-Operative Diagnosis Medial Meniscus Tear Left Knee Procedure(s) Performed Left Knee Arthroscopy with Partial Medial Menisectomy, Chondroplasty Surgeon Corset Maker Surgeon(s) None Estimated Blood Loss 4ml Findings Consistent with Post-Op Diagnosis Specimens None per surgeon Drains None Anesthesia Type General Complication(s) none Disposition Disposition: Recovery Room / PACU
--- NOTE | 2017-12-23 15:24 | [facility] Operative Report ---
Operative Report Operative Date Dec 23, 2017. Pre-Operative Diagnosis Medial Meniscus Tear Left Knee Post-Operative Diagnosis Medial Meniscus Tear Left Knee Procedure(s) Performed Left Knee Arthroscopy with Partial Medial Menisectomy, Chondroplasty Surgeon Conversion Developer Surgeon(s) None Estimated Blood Loss 4ml Findings Patient presents for arthroscopy for torn medial meniscus and chondral lesion medial femoral condyle as well as grade 3 cartilage and patella Specimens None per surgeon Drains None Anesthesia Type General Complication(s) none Disposition Recovery Room / PACU Indications Patient is failed attempts at conservative management including physical therapy anti-inflammatories activity modification relative rest patient presents for knee arthroscopy Description of Procedure After proper prepping and draping the left lower extremity medial lateral parapatellar portals were created. Examination beginning the anterior compartment of the knee revealed there to be multiple loose pieces of cartilaginous material floating freely joint disease removed a tear involving the posterior horn medial meniscus of the partial posterior horn medial meniscectomy performed anterior posterior cruciate ligaments were visualized and probed noted to be intact lateral release was noted to be intact there's grade 2 and 3 chondral lesion involving the lateral tibial plateau of the medial condyle had a small area of grade 3 chondromalacia as well as was debrided to a stable margin every 3 cartilage diffusely the patella was reduced stable marginal particular lateral debris was removed no other intra-articular pathology was noted socially Skipworth closed 4-0 nylon injection of 20 mL were percent plain Marcaine was placed into the knee joint and portals were closed a sterile compressive dressing was placed patient taken recovery in stable condition. I attest to the content of the Intraoperative Record and any orders documented therein. Any exceptions are noted below.
--- NOTE | 2017-12-23 15:25 | Discharge Instructions ---
Discharge Instructions Date of Service Dec 23, 2017. Visit Reason for Visit: Left Knee Other Medial Meniscus Tear, Current Inju Discharge Discharge Diagnosis / Problem: Left Knee Medial Meniscus Tear Discharge Goals Goal(s): Decrease discomfort, Improve function, Increase independence Activity Recommendations Activity Limitations: per Instructions/Follow-up section Weightbearing Status: Left weightbearing (as tolerated) ACTIVITY RECOMMENDATIONS: * You may walk on the leg with or without crutches as comfort permits. * Bending of the knee should start at once. * Do not shower for 48 hours following surgery. SPECIAL CARE INSTRUCTIONS: * You may cleanse the skin adjacent to the small wounds with soap and water at the time of the first dressing change. * The application of an ice bag to the front and sides of the knee will decrease swelling and discomfort for the first 48 hours. * The small incisions may be sore and develop bruising. This bruising does not require any special care. SPECIAL PRECAUTIONS: * If you experience unusual pain unrelieved by prescriptions, temperature elevation (100 degrees F. or above) or progressive swelling or bleeding, you should contact our office at for further evaluation. * You may have been prescribed pain medication. If you experience nausea and/or fine skin rash, discontinue this medication and contact our office at for an alternate medication. DRESSING: * Dressing should be comfortable and absorb any leakage of fluid and/or blood. * The dressing may become moist or bloodstained. * Dressing may be removed 48hours after surgery and bandaids placed over the small surgical incisions. If can be removed sooner if it becomes very soiled or loose. * Bandaids may be used over next several days as needed and can be discontinued when there is not further drainage from the wounds. FOLLOW UP VISIT: If appointment is not already scheduled: Please call [facility] to make a follow-up appointment for your surgery at . Anesthesia . . Instructions / Follow-Up Instructions / Follow-Up ACTIVITY RECOMMENDATIONS: * You may walk on the leg with or without crutches as comfort permits. * Bending of the knee should start at once. * Do not shower for 48 hours following surgery. SPECIAL CARE INSTRUCTIONS: * You may cleanse the skin adjacent to the small wounds with soap and water at the time of the first dressing change. * The application of an ice bag to the front and sides of the knee will decrease swelling and discomfort for the first 48 hours. * The small incisions may be sore and develop bruising. This bruising does not require any special care. SPECIAL PRECAUTIONS: * If you experience unusual pain unrelieved by prescriptions, temperature elevation (100 degrees F. or above) or progressive swelling or bleeding, you should contact our office at for further evaluation. * You may have been prescribed pain medication. If you experience nausea and/or fine skin rash, discontinue this medication and contact our office at for an alternate medication. DRESSING: * Dressing should be comfortable and absorb any leakage of fluid and/or blood. * The dressing may become moist or bloodstained. * Dressing may be removed 48 hours after surgery and bandaids placed over the small surgical incisions. If can be removed sooner if it becomes very soiled or loose. * Bandaids may be used over next several days as needed and can be discontinued when there is not further drainage from the wounds. FOLLOW UP VISIT: If appointment is not already scheduled: Please call [facility] to make a follow-up appointment for your surgery at . Diet Recommendations Recommended Home Diet: resume previous diet Procedures Procedures Performed: Left Knee Arthroscopy with Partial Medial Menisectomy, Chondroplasty Pending Studies Studies pending at discharge: no Medical Emergencies . Who to Call and When: Medical Emergencies: If at any time you feel your situation is an emergency, please call 911 immediately. . Non-Emergent Contact Non-Emergency issues call your: Surgeon Call Non-Emergent contact if: temperature is above 101.5, your pain is not controlled, your pain is worsening, wound has increased drainage, wound has increased redness . . "Provider Documentation" section prepared by Dean Willams. . [place] Drug Monitoring Program Search Results: patient reviewed within database, no issues identified
--- NOTE | 2017-12-23 15:34 | Anesthesiology Progress Note ---
Anesthesia Post Op Note Date & Time Dec 23, 2017 at 15:34 Vital Signs Pain Intensity: 0 Vital Signs Past 12 Hours Date Time Temp Pulse Resp B/P (MAP) Pulse Ox O2 Delivery O2 Flow Rate FiO2 12/23/17 15:30 95 16 174/93 98 Nasal Cannula 2 12/23/17 15:20 92 16 165/94 98 Oxymask 10 12/23/17 15:10 91 16 184/103 97 Oxymask 10 12/23/17 15:00 36.7 94 16 187/100 97 Oxymask 10 12/23/17 12:45 36.9 91 20 166/98 (120) 97 Room Air Notes Mental Status: alert / awake / arousable, participated in evaluation Pt Amnestic to Procedure: Yes Nausea / Vomiting: adequately controlled Pain: adequately controlled Airway Patency, RR, SpO2: stable & adequate BP & HR: stable & adequate Hydration State: stable & adequate Anesthetic Complications: no major complications apparent
[2017-12-23 15:45] VITALS: BP 157/92; PULSE 94; TEMP 36.9; O2SAT 98
[2017-12-23 16:15] VITALS: BP 165/85; PULSE 87; O2SAT 93
[2017-12-23] MEDS ORDERED: DEXAMETHASONE SOD INJ 4 MG/ML VIAL ONE (16:19)
[2017-12-23 16:45] VITALS: BP 169/82; PULSE 91; TEMP 36.8; O2SAT 95
[2017-12-23] MEDS ORDERED: HYDROmorphone INJ 2 MG/ML SYR/VIAL ONE (16:50)
[2017-12-23] MEDS ORDERED: CEFAZOLIN SOD 1 GM VIAL ONE (16:51)
== END 2017-12-23 17:07 | disposition home or self-care (01) ==
LOC: C.ACU 12:23
PROVIDERS: ATTEND Orthopaedic Surgery
DX: S83.242A Other tear of medial meniscus, current injury, left knee, initial encounter (principal); X58.XXXA Exposure to other specified factors, initial encounter; I11.0 Hypertensive heart disease with heart failure; E78.00 Pure hypercholesterolemia, unspecified; I48.91 Unspecified atrial fibrillation; G47.30 Sleep apnea, unspecified; E11.9 Type 2 diabetes mellitus without complications; Z79.4 Long term (current) use of insulin